=== PATIENT | female | born 1960 | race Caucasian/White ===

== ENCOUNTER 2018-07-15 13:34 | Emergency (ER) | payer OTHER ==
[~2018-07-15] VITALS: Ht 167.6 cm; Wt 54.4 kg
== END 2018-07-15 18:58 | disposition home or self-care (01) ==
LOC: ER 13:34
DX: M25.572 Pain in left ankle and joints of left foot (principal)

== ENCOUNTER → 2019-04-20 | Outpatient (CLI) | payer OTHER ==
[~2019-04-20] MED LIST: MEDROLPACK PO
== END | disposition home or self-care (01) ==
LOC: MRI 10:13
DX: G44.221 Chronic tension-type headache, intractable (principal)
CPT/HCPCS: 70551

== ENCOUNTER 2022-01-09 09:16 | Outpatient (CLI) | payer OTHER | END 2022-01-09 09:17 | disposition home or self-care (01) | LOC: NUCLEAR 09:16 | PROVIDERS: ATTEND Internal Medicine | DX: E78.00 Pure hypercholesterolemia, unspecified (principal) ==